=== PATIENT | male | born 1995 | race Two or more races ===

== ENCOUNTER 2025-06-27 10:49 | Emergency (ER) | payer OTHER ==
[~2025-06-27] VITALS: Ht 175.3 cm; Wt 68.0 kg
[2025-06-27] MEDS ORDERED: DEXAMETHASONE SODIUM PHOSPHATE 4 MG/ML VIAL ONE (13:42)
[2025-06-27] MEDS ORDERED: KETOROLAC TROMETHAMINE 60 MG VIAL IM ONE ×2 (13:42→13:45)
[2025-06-27] MEDS ORDERED: DEXAMETHASONE SODIUM PHOSPHATE 4 MG/ML VIAL IM ONE (13:45)
== END 2025-06-27 17:07 | disposition home or self-care (01) ==
LOC: ER 10:50
DX: M79.642 Pain in left hand (principal)